=== PATIENT | male | born 1965 | race Two or more races ===

== ENCOUNTER 2024-06-03 06:12 | Day surgery (SDC) | payer OTHER ==
[2024-05-27 12:27] VITALS: BP 140/90
[~2024-06-03] VITALS: Ht 165.1 cm; Wt 90.7 kg
[~2024-06-03 06:12] MED LIST: LOSARTAN POTASS50 MG PO
[2024-06-03] MEDS ORDERED: HEMOSTATIC MATRIX 1 KIT KIT TOP ONE (07:35)
[2024-06-03] MEDS ORDERED: DIBUCAINE 30 GM TUBE ONE (07:35)
[2024-06-03] MEDS ORDERED: BUPIVACAINE HCL/Mpf 0.5% 10ML VIAL ONE (07:35)
[2024-06-03] MEDS ORDERED: POVIDONE-IODINE 118 ML BOTT TOP ONE (07:35)
[2024-06-03] MEDS ORDERED: LIDOCAINE HCL 1%/EPINEPHRINE 20ML VIAL IJ ONE (07:36)
[2024-06-03] MEDS ORDERED: METRONIDAZOLE/SODIUM CHLORIDE 500 MG/100 ML PIGGYBACK IV ONE (07:36)
[2024-06-03] MEDS ORDERED: CEFTRIAXONE SODIUM 2,000 MG VIAL ONE (07:36)
[2024-06-03] MEDS ORDERED: TAMSULOSIN HCL 0.4 MG CAP PO ONE ×2 (10:45→11:55)
[2024-06-03] MEDS ORDERED: OXYC1TAB9 PO (11:02)
== END 2024-06-03 16:10 | disposition home or self-care (01) ==
LOC: CIR.AMB 06:12
PROVIDERS: ATTEND Surgery
DX: K64.2 Third degree hemorrhoids (principal); K64.4 Residual hemorrhoidal skin tags; K62.5 Hemorrhage of anus and rectum; K62.89 Other specified diseases of anus and rectum; I10 Essential (primary) hypertension

== ENCOUNTER 2024-06-17 10:39 | Inpatient (IN) | payer OTHER ==
[~2024-06-17] VITALS: Ht 165.1 cm; Wt 88.5 kg
[~2024-06-17 10:39] MED LIST changes: +OXYC1TAB9 PO
--- NOTE | 2024-06-17 10:58 | NUR ---
PTE LLEGA POR COMPLICAION DE CIRUGIA DE HEMORROIDA Y SE ENCUENTRA CON [place] RECTAL SE LE MIC S/V Y SE UBICA EN ROSELINE. FUE OPERADO POR EL BRANDEN TAYLOR [place] LA CUAL NO SE ENCUENTRA DISPONIBLE Y DE LA OFICINA DEL REFIERE A EL DR. JUAN HANKS. SE LE EDWIN A EL GEORGINA TAYLOR.
[2024-06-17] MEDS ORDERED: 0.9 % SODIUM CHLORIDE 1,000 ML IV STA (11:14)
--- NOTE | 2024-06-17 11:33 | NUR ---
PTE EVALAUDO POR MD [place] MED A PTE. SE EDUCA A PTE SOBRE EL MISO Y PTE REFIERE ENTENDER. SE LLEVA ACAO MIC DE MUESTRAS BAJO MEDIDAS ACEPTICAS, PTE PEND A RESULTADOS DE LABS.
[2024-06-17 11:59] LABS: HEMATOCRIT 43.7 % (39.0-48.0); HEMOGLOBIN 14.7 g/dL (13-16.00); MEAN CELL VOLUME 85.1 fL (80.0-100.00); MEAN CORPUSCULAR HEMOGLOBIN 28.6 pg (27.00-32.0); MEAN CORPUSCULAR HGB CONC 33.6 g/dl (32.0-36.0); PLATELET COUNT 277 K/uL (150-450); RED BLOOD COUNT 5.13 M/uL (4.00-6.00); RED CELL DISTRIBUTION WIDTH 14.2 % (11.5-14.5)
[2024-06-17] MEDS ORDERED: 0.9 % SODIUM CHLORIDE 1,000 ML IV SCH ×2 (12:00→18:45)
[2024-06-17 12:35] LABS: CALCIUM 9.4 mg/dL (8.5-10.1); CREATININE SERUM 0.9 mg/dL (0.70-1.30); GFR 86.98; POTASSIUM 4.55 mEq/L (3.5-5.1)
[2024-06-17 12:41] LABS: INR 1.12; PROTHROMBIN TIME 12.1 SECONDS (9.0-11.5)
[2024-06-17] MEDS ORDERED: fentaNYL CITRATE 50 MCG/ML AMPUL IV ONE (14:00)
[2024-06-17] MEDS ORDERED: DIPHENHYDRAMINE HCL 50 MG/ML VIAL 1ML IV ONE (14:00)
[2024-06-17] MEDS ORDERED: MIDAZOLAM HCL 2 MG/2 ML VIAL IV ONE (14:00)
[2024-06-17] MEDS ORDERED: AMIKACIN SULFATE 250 MG/ML - 1GM VIAL IV STA (14:25)
[2024-06-17 14:56] LABS: HEMATOCRIT 40.1 % (39.0-48.0); HEMOGLOBIN 13.4 g/dL (13-16.00); MEAN CELL VOLUME 85.1 fL (80.0-100.00); MEAN CORPUSCULAR HEMOGLOBIN 28.5 pg (27.00-32.0); MEAN CORPUSCULAR HGB CONC 33.5 g/dl (32.0-36.0); PLATELET COUNT 324 K/uL (150-450); RED BLOOD COUNT 4.71 M/uL (4.00-6.00)
[2024-06-17 14:57] LABS: RED CELL DISTRIBUTION WIDTH 17.1 % (11.5-14.5)
[2024-06-17] MEDS ORDERED: AMINOCAPROIC ACID 250 MG/ML VIAL IV STA (14:59)
[2024-06-17] MEDS ORDERED: DEXTROSE 50 % IN WATER 0.5 G/ML DISP.SYRIN IV PRN (18:45)
[2024-06-17] MEDS ORDERED: MORPHINE SULFATE 4 MG/ML CARTRIDGE IV PRN (18:45)
[2024-06-17] MEDS ORDERED: ONDANSETRON HCL 2 MG/ML VIAL IV PRN (18:45)
[2024-06-17] MEDS ORDERED: OxyCODONE HCL 5 MG TABLET (ROXICODONE) PO PRN (18:45)
[2024-06-17] MEDS ORDERED: LIDOCAINE HCL 1%/EPINEPHRINE 20ML VIAL IJ ONE (19:00)
[2024-06-17] MEDS ORDERED: METRONIDAZOLE/SODIUM CHLORIDE 500 MG/100 ML PIGGYBACK IV ONE (19:00)
[2024-06-17] MEDS ORDERED: BUPIVACAINE HCL 30 ML VIAL IJ ONE (19:00)
[2024-06-17] MEDS ORDERED: CEFTRIAXONE SODIUM 2,000 MG VIAL IV ONE (19:00)
[2024-06-17] MEDS ORDERED: HEMOSTATIC MATRIX 1 KIT KIT TOP ONE (19:00)
[2024-06-17] MEDS ORDERED: DIBUCAINE 30 GM TUBE RECTAL ONE (19:00)
[2024-06-17] MEDS ORDERED: POVIDONE-IODINE 118 ML BOTT TOP ONE (19:00)
[2024-06-17 19:57] LABS: HEMATOCRIT 36.6 % (39.0-48.0); HEMOGLOBIN 12.5 g/dL (13-16.00); MEAN CELL VOLUME 84.9 fL (80.0-100.00); MEAN CORPUSCULAR HEMOGLOBIN 28.9 pg (27.00-32.0); MEAN CORPUSCULAR HGB CONC 34.1 g/dl (32.0-36.0); PLATELET COUNT 273 K/uL (150-450); RED BLOOD COUNT 4.31 M/uL (4.00-6.00); RED CELL DISTRIBUTION WIDTH 17.3 % (11.5-14.5)
[2024-06-17] MEDS ORDERED: ACETAMINOPHEN 500 MG GEL..CAP PO SCH (20:00)
[2024-06-17 20:22] LABS: ALBUMIN 3.4 gm/dL (3.4-5.0); CALCIUM 8.5 mg/dL (8.5-10.1); CREATININE SERUM 0.87 mg/dL (0.70-1.30); GFR 90.44; MAGNESIUM 1.9 mg/dL (1.8-2.4); PHOSPHOROUS 3.7 mg/dL (2.5-4.9); POTASSIUM 4.82 mEq/L (3.5-5.1)
[2024-06-17 20:23] VITALS: BP 115/63; O2SAT 97
[2024-06-17] MEDS ORDERED: FAMOTIDINE/PF 20 MG/2 ML VIAL IV PUSH SCH (21:00)
[2024-06-17] MEDS ORDERED: CELECOXIB 200 MG CAPSULE PO SCH (21:00)
[2024-06-18] MEDS ORDERED: METRONIDAZOLE/SODIUM CHLORIDE 500 MG/100 ML PIGGYBACK IV SCH (01:00)
[2024-06-18 01:06] VITALS: BP 127/68; O2SAT 100
[2024-06-18 07:40] LABS: INR 1.11; PARTIAL THROMBOPLASTIN TIME 32.6 SECONDS (22.0-34.0)
[2024-06-18 07:42] LABS: HEMATOCRIT 33.3 % (39.0-48.0); HEMOGLOBIN 11.3 g/dL (13-16.00); MEAN CELL VOLUME 84.6 fL (80.0-100.00); MEAN CORPUSCULAR HEMOGLOBIN 28.7 pg (27.00-32.0); MEAN CORPUSCULAR HGB CONC 33.9 g/dl (32.0-36.0); PLATELET COUNT 241 K/uL (150-450); RED BLOOD COUNT 3.94 M/uL (4.00-6.00); RED CELL DISTRIBUTION WIDTH 13.2 % (11.5-14.5)
[2024-06-18 08:00] VITALS: BP 160/90; O2SAT 99
[2024-06-18] MEDS ORDERED: ENALAPRILAT DIHYDRATE 1.25 MG/ML VIAL IV PRN (13:30)
[2024-06-18] MEDS ORDERED: LOSARTAN POTASSIUM 25 MG TABLET PO STA (13:32)
[2024-06-18] MEDS ORDERED: SOD FERRIC GLUC COMPLX/SUCROSE 62.5 MG in 0.9 % SODIUM CHLORIDE 50 ML IV SCH (13:32)
[2024-06-18] MEDS ORDERED: Cyanocobalamin/Mecobalamin 1 TAB.SL SL SCH (13:33)
[2024-06-18] MEDS ORDERED: POLYETHYLENE GLYCOL 3350 17 GM BLIST.PACK PO SCH (17:00)
[2024-06-18] MEDS ORDERED: ENOXAPARIN SODIUM 40 MG/0.4 ML SYRINGE SUBCUTANEO SCH (17:00)
[2024-06-19 00:34] VITALS: BP 147/83; O2SAT 98
[2024-06-19 07:35] LABS: HEMATOCRIT 31.3 % (39.0-48.0); HEMOGLOBIN 10.7 g/dL (13-16.00); MEAN CELL VOLUME 84.6 fL (80.0-100.00); MEAN CORPUSCULAR HEMOGLOBIN 28.9 pg (27.00-32.0); MEAN CORPUSCULAR HGB CONC 34.1 g/dl (32.0-36.0); PLATELET COUNT 211 K/uL (150-450); RED CELL DISTRIBUTION WIDTH 13.4 % (11.5-14.5)
[2024-06-19 08:00] VITALS: BP 156/89; O2SAT 98
[2024-06-19] MEDS ORDERED: ENOXAPARIN SODIUM 40 MG/0.4 ML SYRINGE SUBCUTANEO SCH (09:00)
[2024-06-19] MEDS ORDERED: LOSARTAN POTASSIUM 50 MG TABLET PO SCH (09:00)
== END 2024-06-19 13:46 | disposition home or self-care (01) | DRG 909 ==
LOC: ER 10:41 → SEC-K 11:57 → SURH 11:57 → O/R 13:51 → SURH 16:49 → SURG 06-18 16:22
PROVIDERS: Emergency Medicine; ADMIT Surgery; ATTEND Surgery
PROC: 0W3P7ZZ Control Bleeding in Gastrointestinal Tract, Via Natural or Artificial Opening (ICD-10-PCS; 2024-06-17)
PROC: 0W3P8ZZ Control Bleeding in Gastrointestinal Tract, Via Natural or Artificial Opening Endoscopic (ICD-10-PCS; 2024-06-17)
PROC: 0DQQ7ZZ Repair Anus, Via Natural or Artificial Opening (ICD-10-PCS; principal; 2024-06-17 17:15)
DX: K91.840 Postprocedural hemorrhage of a digestive system organ or structure following a digestive system procedure (principal)